=== PATIENT | female | born 2005 | race Caucasian/White ===

== ENCOUNTER 2023-05-20 19:31 | Emergency (ER) | payer BC ==
[~2023-05-20] VITALS: Ht 165.1 cm; Wt 56.8 kg
[2023-05-20 19:34] VITALS: BP 115/78; TEMP 98
[2023-05-20] MEDS ORDERED: Oxymetazoline 0.05% Nasal Spray 30 ML BOTTLE NS ONE (19:45)
[2023-05-20 20:45] VITALS: PULSE 71
== END 2023-05-20 20:45 | disposition home or self-care (01) ==
LOC: COL.ER 19:31
DX: R04.0 Epistaxis (principal)